=== PATIENT | female | born 1965 | race Caucasian/White ===

== ENCOUNTER 2019-06-03 15:14 | Outpatient (CLI) | payer OTHER ==
--- NOTE | 2019-06-03 16:08 | RAD ---
TWO VIEWS RIGHT KNEE: 06/03/19 PROVIDED CLINICAL HISTORY: Disability exam. FINDINGS: No evidence for fracture or other acute osseous abnormality. Alignment appears anatomic. Joint spaces appear preserved. IMPRESSION: No evidence for an acute osseous abnormality or significant arthropathy. POS: [facility]
--- NOTE | 2019-06-03 16:11 | RAD ---
LUMBAR SPINE RADIOGRAPHS THREE VIEWS: 06/03/19 PROVIDED CLINICAL HISTORY: Disability exam. FINDINGS: No comparisons. Five lumbar type vertebral bodies are demonstrated. Bilateral L5 pars defects with grade I-II spondyl olisthesis of L5 on S1. Lumbar alignment appears otherwise normal. Vertebral body heights appear pres erved. Pedicles appear intact. Vascular calcifications are seen. IMPRESSION: Bilateral L5 pars defects with grade I-II spondylolisthesis of L5 on S1. POS: [facility]
== END 2019-06-03 15:15 | disposition home or self-care (01) ==
LOC: BICRAD 15:14
PROVIDERS: ATTEND Internal Medicine
DX: Z02.71 Encounter for disability determination (principal); M43.17 Spondylolisthesis, lumbosacral region
CPT/HCPCS: 72100

== ENCOUNTER 2021-11-29 12:26 | Emergency (ER) | payer SELFPAY ==
[~2021-11-29 12:26] MED LIST: ISOVUE-370 76%-LOCM 1 ML ONE
[2021-11-29 13:14] LABS: #Eosinphils 0.1 thou/uL (0.0-0.7); #Lymphocytes 1.8 thou/uL (1.20-3.40); #Monocytes 0.3 thou/uL (0.11-0.59); #Neutrophils 2.8 thou/uL (1.40-6.50); %Basophils 0.7 % (0.0-1.0); %Eosinophils 2.8 % (0.0-10.0); %Lymphocytes 34.6 % (21.0-51.0); %Monocytes 6.8 % (0.0-10.0); %Neutrophils 55.1 % (42.0-75.0); Hemoglobin 15.7 g/dL (12.0-16.0); Mean Corpuscular HGB CONC 33.3 g/dL (32.0-36.0); Mean Corpuscular Hemoglobin 32.6 pg (27.0-31.0); Mean Corpuscular Volume 97.7 fL (78.0-98.0); Mean Platelet Volume 8.8 fL (7.4-10.4); Platelet Count 183 thou/uL (130-400); RBC Distribution Width 11.6 % (11.5-14.5); Red Blood Cell (RBC) Count 4.81 mill/uL (4.20-5.40); White Blood Cell (WBC) Count 5.1 thou/uL (4.8-10.8)
[2021-11-29 13:34] LABS: ALT (SGPT) 12 U/L (8-55); AST (SGOT) 13 U/L (5-34); Albumin 4.1 g/dL (3.5-5.0); Alkaline Phosphatase 101 U/L (40-110); Anion Gap 13 mmol/L (10-20); BUN (Urea Nitrogen) 17 mg/dL (9.8-20.1); Bilirubin, Total 0.3 mg/dL (0.2-1.2); Calc. Creatinine Clearance 0 mL/min (70-130); Calcium 9.6 mg/dL (7.8-10.44); Carbon Dioxide 29 mmol/L (22-29); Chloride 107 mmol/L (98-107); Estimated GFR 90; Globulin 3.1 g/dL (2.4-3.5); Glucose 92 mg/dL (70-105); Lipase 25 U/L (8-78); Potassium 4.6 mmol/L (3.5-5.1); Protein, Total 7.2 g/dL (6.0-8.3); Sodium 144 mmol/L (136-145)
[2021-11-29 15:37] LABS: Bilirubin Negative (Negative); Blood, Urine Negative (Negative); Clarity Clear (Clear); Glucose, Urine (Dipstick) Normal (Negative); Ketone, Urine Negative (Negative); Leukocyte Negative Leu/uL (Negative); Nitrite Negative (Negative); Protein, Urine (Dipstick) Negative (Neg-Trace); Urobilinogen Normal mg/dL (Less than 2); pH, Urine 7.5 (5.0-9.0)
[2021-11-29 15:40] LABS: Specific Gravity, Urine 1.058 (1.002-1.036)
== END 2021-11-29 16:33 | disposition home or self-care (01) ==
LOC: ERS 12:26
DX: R10.30 Lower abdominal pain, unspecified (principal); J44.9 Chronic obstructive pulmonary disease, unspecified; Z79.899 Other long term (current) drug therapy
CPT/HCPCS: 36415; 74177; 80053; 81003; 83690; 84484; 85025; 93005; Q9966